=== PATIENT | female | born 1965 | race Two or more races ===

== ENCOUNTER → 2022-05-31 | Outpatient (CLI) | payer MEDICAID ==
[~2022-05-31] VITALS: Ht 157.5 cm; Wt 113.4 kg
[~2022-05-31] MED LIST: ADENOSINE 95 MG in GIVE UN-DILUTED 0 ML IV ONE
== END | disposition home or self-care (01) ==
LOC: XYW 09:59
PROVIDERS: ATTEND Specialist
DX: R06.02 Shortness of breath (principal)
CPT/HCPCS: 78452; 93017; A9500; J0153

== ENCOUNTER 2022-10-02 07:15 | Day surgery (SDC) | payer MEDICAID ==
[2022-10-02] VITALS (9 sets, daily range): BP systolic 123–157; BP diastolic 65–87; PULSE 63–83; RESP 15–19; TEMP 98; O2SAT 93–98
[~2022-10-02] VITALS: Ht 156.2 cm; Wt 117.9 kg
[~2022-10-02 07:15] MED LIST changes: -ADENOSINE 95 MG in GIVE UN-DILUTED 0 ML IV ONE; +ALBU108A5 IN; +ASPI-543 PO; +ATOR20TA PO; +BACL10TA PO; +CALC1TAB92 PO; +CHOL20007 PO; +DULO30CA PO; +FAMO20TA10 PO; +FURO1TAB33 PO; +HYDR-4188 OR; +LISI-713 PO; +METO25TA5 PO; +MULT1TAB96 PO
[2022-10-02] MEDS ORDERED: IOHEXOL 350 MG/ML 100ML IJ ONE (07:51)
[2022-10-02] MEDS ORDERED: LIDOCAINE 2%HCL (LOCAL ANESTH.) INJ 20ML MDV ONE (07:51)
[2022-10-02] MEDS ORDERED: IODIXANOL 320MG/ML 100ML BTL IV ONE (07:51)
[2022-10-02] MEDS ORDERED: fentaNYL CITRATE 100 MCG/2 ML VL ONE (09:09)
[2022-10-02] MEDS ORDERED: ANGIOMAX 250 MG VIAL IV ONE (09:09)
[2022-10-02] MEDS ORDERED: MIDAZOLAM HCL 2MG/2ML 2ml VIAL (1mg/ml) ONE (09:09)
[2022-10-02] MEDS ORDERED: VERAPAMIL 2.5MG/ML INJ 2ML VIAL IV ONE (09:09)
[2022-10-02] MEDS ORDERED: SODIUM CHL 0.9% 0 ML ONE (09:09)
[2022-10-02] MEDS ORDERED: HEPARIN SODIUM (PORCINE) 5000 UNITS/ML 1ML VIAL ONE (09:29)
== END 2022-10-02 12:12 | disposition home or self-care (01) ==
LOC: CATH 07:15
PROVIDERS: ATTEND Internal Medicine Cardiovascular Disease
DX: R94.39 Abnormal result of other cardiovascular function study (principal); I11.9 Hypertensive heart disease without heart failure; R06.09 Other forms of dyspnea; E66.01 Morbid (severe) obesity due to excess calories; E11.9 Type 2 diabetes mellitus without complications; I10 Essential (primary) hypertension; E78.5 Hyperlipidemia, unspecified; F32.9 Major depressive disorder, single episode, unspecified; G47.33 Obstructive sleep apnea (adult) (pediatric); J45.909 Unspecified asthma, uncomplicated; Z98.890 Other specified postprocedural states; I77.1 Stricture of artery
CPT/HCPCS: 93458; C1725; C1894; J1644; J2250; J3010; J7030; Q9967; 99152